=== PATIENT | female | born 1950 | race Caucasian/White ===

== ENCOUNTER 2019-10-14 17:50 | Inpatient (IN) ==
[2019-10-14] MEDS ORDERED: ASPIRIN PO ONE (17:54)
[2019-10-14 18:41] LABS: ALLEN TEST YES; BE 7.1 mmoll (-3.0-3.0); BLOOD TYPE ARTERIAL; HCO3-(ACT) 30.3 mmoll (20.0-26.0); METHB 1.2 % (0.0-1.5); O2(CT) 14.6 mL/dL (15.0-23.0); O2HB 90.4 % (95.0-99.0); PCO2(98.6) 46 mmHg (35-45); PO2(98.6) 60 mmHg (60-100); SAMPLE BLOOD; SAO2 93.9 % (95.0-100.0); THB 11.5 g/dL (11.5-17.4); pH(98.6) 7.45 (7.35-7.45)
[2019-10-14 18:42] LABS: MODALITY ROOM AIR
--- NOTE | 2019-10-14 18:52 | PROVIDER DOCUMENTATION ---
HPI-General Adult - General Chief Complaint: Chest Pain Stated Complaint: Chest pain, dyspnea Time Seen by Provider: 10/14/19 17:51 Source: patient, family Allergies/Adverse Reactions: Patient Allergies Allergy/AdvReac Type Severity Reaction Status Date / Time No Known Allergies Allergy Verified 10/24/17 15:08 Home Medications: Home Medication List Medication Instructions Recorded Confirmed Last Taken Type ATORVAstatin [Lipitor] 40 mg PO QHS 10/24/17 10/14/19 Unknown History Aspirin 81 mg PO DAILY 10/24/17 10/14/19 Unknown History Ergocalciferol (Vitamin D2) 50,000 unit PO DIRECTED 10/24/17 10/14/19 Unknown History [Drisdol] Fenofibrate 160 mg PO DAILY 10/24/17 10/14/19 Unknown History Nitroglycerin [Nitrostat] 0.4 mg SL DIRECTED PRN 10/25/17 10/14/19 Unknown History Diltiazem C.d. [Cardizem Cd] 240 mg PO DAILY #30 cap 10/29/17 10/14/19 Unknown Rx Metoprolol [Lopressor] 25 mg PO Q12HR #60 tab 10/29/17 10/14/19 Unknown Rx Pantoprazole [Protonix] 40 mg PO DAILY@0700 #30 tab 10/29/17 10/14/19 Unknown Rx Apixaban [Eliquis] 1 tab PO BID 10/14/19 10/14/19 Unknown History Paroxetine [Paxil] 10 mg PO DAILY 10/14/19 10/14/19 Unknown History - History of Present Illness -Gen Adult Nature of Presenting Problems: [id number] presents with sudden onset of right side chest pain and dyspnea that started about an hour prior to arrival. Daughter states, patient was just recently discharged from [facility] on 10/10/19 and had a PE on her Aorta. Patient also has a history of DVT and has left leg edema. Patient is in AFib/Flutter and h/o CHF. Daughter states that she also developed bedsore to buttocks while at [facility]. Patient does have accessory muscle usage and not eable left leg edema. Location of Pain/Injury: reports: chest (right chest) Pain Radiation: reports: no radiation Quality of Pain: reports: sharp Severity: reports: moderate Onset/Duration: reports: 1 hour ago Timing: reports: still present Associated Symptoms: reports: shortness of breath Similar Symptoms Previously?: Yes (Recently in [facility] on 10/10/19 diagnosed with PE on Aorta) Recently seen or treated by another doctor?: Yes (In [facility] on 10/10/19) Review of Systems - Adult - REVIEW OF SYSTEMS - ADULT Constitutional: reports: no symptoms reported Eyes: reports: no symptoms reported Ears, Nose, Mouth & Throat: reports: no symptoms reported Cardiovascular: reports: chest pain, edema (left leg), irregular heart rate Respiratory: reports: shortness of breath Gastrointestinal: reports: diarrhea Genitourinary: reports: incontinence Musculoskeletal: reports: muscle weakness Integumentary: reports: skin sores/ulcer (bed sore to left buttocks and right elbow) Neurological: reports: no symptoms reported Psychiatric: reports: no symptoms reported Endocrine: reports: no symptoms reported Hematologic/Lymphatic: reports: no symptoms reported Allergic/Immunologic: reports: no symptoms reported All Other Systems: Reviewed and Negative Past History - Adult - PAST MEDICAL HISTORY-ADULT Review of Records: reports: Old Records Reviewed, Nursing Assessment Review, Medications Reviewed, Social history reviewed & non-contributory. Major Childhood Illnesses: reports: denies history Cardiovascular: reports: A-Fib, arrhythmia, blood clots, CHF, HTN, hyperlipidemia Respiratory: reports: denies history Gastrointestinal: reports: denies history Obstetrical/Gynecological: reports: denies history Genitourinary: reports: denies history Musculoskeletal: reports: denies history Neurological: reports: CVA Psychiatric: reports: depression Endocrine/Immune: reports: denies history Other Conditions: reports: denies history - PRIOR SURGERIES/PROCEDURES Surgical/Procedure History: reports: cardiac stent (x 2) - IMMUNIZATION STATUS Childhood Immunizations: See Nurse Assessment Flu Vaccine: See Nurse Assessment - FAMILY HISTORY Family History: reviewed, not pertinent - SOCIAL HISTORY Smoking: less than 1 pack/day Provider spent 3-5 mins advising pt. on dangers of tobacco.: Discussed manners to quit use, and f/u contacts for add'l counseling. Substance Use: none presently/history of abuse Alcohol Use Frequency: never Living Situation: family Physical Exam-General - PHYSICAL EXAM-ADULT Initial Vital Signs Reviewed: Yes - CONSTITUTIONAL General Appearance: alert, mild distress - EYES Eyes: PERRL/EOMI, pink conjunctivae - HEAD, EARS, NOSE, MOUTH & THROAT HENMT: normocephalic/atraumatic, moist mucous membranes - NECK Neck: non-tender, full range of motion, supple, normal inspection - RESPIRATORY Respiratory: chest non-tender, respiratory distress (mild respiratory distress), accessory muscle use, rales - CARDIOVASCULAR Cardiovascular: normal peripheral pulses, no gallop, no JVD, no murmur, irregularly irregular - GASTROINTESTINAL (ABDOMEN) Abdominal Exam: normal bowel sounds, non tender, soft - LYMPHATIC Lymphatic: no adenopathy - MUSCULOSKELETAL Extremity: non-tender, erythema (bruise to dorsal aspect of left foot), pedal edema, swelling (left leg) Peripheral Pulses: radial (R): 2+, radial (L): 2+, dorsalis-pedis (R): 2+, dorsalis-pedis (L): 2+ - SKIN Integumentary: warm/dry, petechiae (to bilateral lower extremities), swelling (left leg), other - NEUROLOGIC Neurologic: motor weakness - PSYCHIATRIC Psych/Mental Status: normal mood/affect, normal thought process, oriented x 3 Progress - PLAN OF CARE/RESULTS Progress/Plan/Lab Results: Vital Signs - 8 hr 10/14/19 17:50 10/14/19 17:53 Temperature 98.6 F Pulse Rate 64 Respiratory Rate 21 Blood Pressure 162/90 O2 Sat by Pulse Oximetry 95 Laboratory Results - last 24 hr 10/14/19 18:32 Specimen Type ARTERIAL Sample Site R RADIAL pH 7.45 pCO2 46 H pO2 60 HCO3 30.3 H Base Excess 7.1 H Oxyhemoglobin 90.4 L ABG O2 Sat (Calculated) 14.6 L ABG O2 Saturation 93.9 L ABG Carboxyhemoglobin 2.60 H ABG Methemoglobin 1.2 Coleman Test YES A-a O2 Difference 32.0 Total Hemoglobin 11.5 Lactate 0.60 Blood Gas Modality ROOM AIR FiO2 % 21.0 Orders Category Date Time Status Cardiac Monitoring DIRECTED Care 10/14/19 17:54 Active Oxygen Therapy- ED Nursing DIRECTED Care 10/14/19 17:54 Active Saline Loc NOW Care 10/14/19 17:54 Active CHEST-2 VIEWS [RAD] Stat Exams 10/14/19 17:54 Taken ABG [RESP] Routine Lab 10/14/19 18:32 Completed CBC WITH ELECTRONIC DIFF [HEME] Stat Lab 10/14/19 18:40 Ordered CK PROFILE [SP CHEM] Stat Lab 10/14/19 18:40 Ordered COMPREHENSIVE METABOLIC PANEL [CHEM] Stat Lab 10/14/19 18:40 Ordered LACTATE, PLASMA [CHEM] Q3H Lab 10/14/19 18:40 Ordered LACTATE, PLASMA [CHEM] Q3H Lab 10/14/19 21:30 Uncollected LACTATE, PLASMA [CHEM] Q3H Lab 10/15/19 00:30 Uncollected PRO B-NATRIURETIC PEPTIDE Stat Lab 10/14/19 18:40 Ordered PROTIME WITH INR [COAG] Stat Lab 10/14/19 18:40 Ordered PTT [COAG] Stat Lab 10/14/19 18:40 Ordered TROPONIN T HIGH SENSITIVITY Stat Lab 10/14/19 18:40 Ordered Aspirin Med 10/14/19 17:54 Discontinued 325 mg PO NOW ONE CP/SOB/Palp >45 yrs of Age Stat Oth 10/14/19 17:54 Ordered EKG [EKG] Stat Ther 10/14/19 17:54 Ordered Venous U/S Left Leg Stat Ther 10/14/19 18:25 Ordered Result Diagrams: 10/14/19 18:40 10/14/19 18:40 - REASSESSMENT Reassessment #1 Time Reassessed: 18:30 Status: improving (breathing improved pending labs and ct) Reassessment #2 Time Reassessed: 20:58 Status: other (Patient to be admitted) - XRAY 1 XRAY Study: Chest (FINDINGS: There is some mild infiltrate or atelectasis at the left lower lobe with some loss of the left hemidiaphragm. Heart size is normal. No pneumothorax or significant pleural effusion. IMPRESSION: Left lower lobe infiltrate suggesting pneumonia or viral infection.) - CONSULTS/PCP/HOSPITALIST Notification #1 *Consult/PCP/Hospitalist*: Dr. Mcdowell Time Discussed: 20:58 Reason/Comments: Pneumonia, CHF Consult Disposition: Admit Departure - Departure Date of Disposition Decision: 10/14/19 Time of Disposition Decision: 20:59 DIAGNOSIS: Pneumonia Qualifiers: Pneumonia type: due to unspecified organism Laterality: left Lung location: lower lobe of lung Qualified Code(s): J18.1 - Lobar pneumonia, unspecified organism CHF exacerbation Qualifiers: Heart failure type: unspecified Qualified Code(s): I50.9 - Heart failure, unspecified Disposition: ADMITTED INPATIENT 09 Certified Medical Emergency: Emergent Condition: Critical Referrals and Follow-Ups: Wale Pike [Primary Care Provider] - - Critical Care Note This patient required my direct & personal management of CC.: Yes Total Time (mins): 40 Critical Care Statement: This patient required my direct personal management to treat or rule out processes, the absence of which, could potentiallly result in sudden, clinically significant life or limb threatening deterioration. Attestation - Physician/ BRISA Attestation Patient care was provided by Advanced Practice Provider:: Yes Advanced Practice Provider:: Jillian López Advanced Practice Provider documentation review:: The Mid-level provider documentation, treatment plan and medical decision making was reviewed by the physician who agrees with all treatment and medical decision making by the MLP. The physician spent face to face time with patient:: No Advanced Practice Provider documentation review:: Supervising physician onsite and consulted in the evaluation and care of this patient. The physician did not have a face to face encounter with the patient.
[2019-10-14 19:00] LABS: BASO# 0.02 X1000 (0.0-0.2); BASO% 0.2 % (0.0-0.8); EOS# 0.24 X1000 (0.0-0.7); EOS% 2.3 % (0.0-10.0); HEMATOCRIT 36.1 % (37.0-47.0); HEMOGLOBIN 11.5 g/dL (12.0-16.0); IMM GRAN# 0.03 X1000 (0.0-0.04); IMM GRAN% 0.3 % (0.0-0.5); LYMPH% 8.5 % (20.5-51.1); MCHC 31.9 g/dL (33-37); MCV 90.9 FL (81-99); MONO# 0.87 X1000 (0.11-0.59); MONO% 8.2 % (1.7-9.3); MPV 11.6 FL (7.4-10.4); NEUT# 8.56 X1000 (1.4-6.5); NEUT% 80.5 % (42.2-75.2); PLT 259 X1000 (130-400); RBC 3.97 XMIL (4.2-5.4); WBC 10.62 X1000 (4.8-10.8)
[2019-10-14 19:05] LABS: INR 1.48; PROTIME 18.2 Seconds (11.0-16.0); PTT 35.2 Seconds (22.3-41.8)
[2019-10-14 19:26] LABS: AGAP 10; ALB/GLOB RATIO 1.3; ALBUMIN 2.8 g/dL (3.5-5.0); ALKALINE PHOSPHATASE 46 U/L (32-104); BUN 19 mg/dL (8-22); CALCIUM 8.2 mg/dL (8.8-10.2); CHLORIDE 99 mmol/L (98-107); CK PROFILE 25 U/L (24-173); COSMO 278; CREATININE 0.8 mg/dL (0.5-0.9); ESTIMATED GFR > 60; GLUCOSE 103 mg/dL (70-104); GOT 14 U/L (10-30); GPT 5 U/L (10-36); POTASSIUM 3.8 mmol/L (3.5-5.1); SODIUM 138 mmol/L (136-145); TCO2 29 mmol/L (25-35); TOTAL BILIRUBIN 0.58 mg/dL (0.20-1.00); TOTAL PROTEIN 4.9 g/dL (6.3-8.3)
--- NOTE | 2019-10-14 19:30 | Diag Imaging Result Doc PS360 ---
CHEST-2 VIEWS - 10/14/2019 INDICATION: CP COMPARISON: 10/24/2017 FINDINGS: There is some mild infiltrate or atelectasis at the left lower lobe with some loss of the left hemidiaphragm. Heart size is normal. No pneumothorax or significant pleural effusion. IMPRESSION: Left lower lobe infiltrate suggesting pneumonia or viral infection. Electronically signed by Des Cortez 10/14/2019 7:28 PM
[2019-10-14] MEDS ORDERED: LASIX IV ONE (19:42)
[2019-10-14] MEDS ORDERED: MAXIPIME 1 GM in NS 50 ML IV SCH (20:00)
--- NOTE | 2019-10-14 20:56 | Diag Imaging Result Doc PS360 ---
CT ABD/PELVIS/PULM ARTERIES - 10/14/2019 INDICATION: cp,dyspnea,hxaaa TECHNIQUE: Axial CT images were obtained after administering intravenous contrast. Coronal MIP images were generated. COMPARISON: 10/28/2017 FINDINGS: CHEST: There is extremely extensive atherosclerotic plaque buildup in the descending thoracic aorta extending into the abdominal aorta. There is no pulmonary embolism. There are stents in the proximal subclavian arteries bilaterally. Heart size is borderline enlarged. No pericardial effusion. There are small bilateral pleural effusions. There is some aspirated frothy fluid in the right mainstem bronchus. There is mild bronchitis. There is a small nodular infiltrate in the left lower lobe measuring about 14 mm. There is also some plate like atelectasis in both lung bases. There are moderate degenerative changes of the spine. No acute or suspicious bony lesion. Abdomen pelvis: There is complete opacification of the abdominal aorta and both common iliac arteries. This is at the level below the renal arteries. There is aneurysmal dilation of the abdominal aorta measuring up to 3.8 cm. There is reconstitution of the internal and external iliac artery systems via collaterals. There is severe distention of the urinary bladder. There is moderate bilateral hydronephrosis. There are some hypoenhancing areas of the spleen compatible small splenic infarctions. The adrenal glands are bulky. The pancreas and gallbladder are normal. No bowel obstruction or inflammation. Normal appendix. Uterus and rectum are normal. There are moderate degenerative changes of the spine. No acute or suspicious bony lesion. IMPRESSION: 1. Small bilateral pleural effusions. Bronchitis. Frothy aspirated fluid in the right mainstem bronchus. 2. Suspicious pulmonary nodule in the left lower lobe. Outpatient follow-up recommended. 3. Severe atherosclerotic sclerotic plaque buildup of the descending aorta and abdominal aorta. 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 There is reconstitution of the internal and external iliac arteries via collaterals. 4. Severely overdistended urinary bladder with bilateral hydronephrosis. Recommend placing a Rangel catheter. This exam was performed using automated exposure control, adjustment of mA or kV according to patient size, and/or use of iterative reconstruction technique Electronically signed by Des Cortez 10/14/2019 8:54 PM
--- NOTE | 2019-10-14 21:31 | EKG Report ---
Test Performed on : 10/14/2019 5:57:45 PM Test Reason : cp Blood Pressure : / mmHG Vent. Rate : 082 BPM Atrial Rate : 208 BPM P-R Int : 000 ms QRS Dur : 086 ms QT Int : 360 ms P-R-T Axes : 000 -76 111 degrees QTc Int : 420 ms Atrial fibrillation. Left axis deviation Inferior infarct (cited on or before 24-OCT-2017) Anterior infarct (cited on or before 24-OCT-2017) Abnormal ECG When compared with ECG of 29-OCT-2017 05:49, Questionable change in initial forces of Septal leads Nonspecific T wave abnormality, improved in Anterolateral leads Unconfirmed Result
--- NOTE | 2019-10-14 22:15 | HISTORY AND PHYSICAL ---
PRIMARY CARE PHYSICIAN: Wale Bowling MD REASON FOR ADMISSION: One week of dry cough and pleuritic chest pain, increased shortness of breath. HISTORY OF PRESENT ILLNESS: Mr. Essence Maurer is a 68-year-old woman with past medical history of atrial fibrillation, prior CVA, hypertension, coronary artery disease status post stent, hyperlipidemia who was recently admitted to [facility] in [place] for what appeared to be COPD exacerbation. During the course of her stay they noticed that she had a thrombus in the aorta and she was transferred to [facility] in [place]. She spent another week there and was discharged on Eliquis for this. Over the last 2 weeks, the daughter tells me that her mother has been unable to get out of bed. She also had her left lower extremity swollen, but not painful and they were concerned, and were told to come to the hospital at the behest of the home health nurse. Her venous Doppler studies have been negative thus far. She denies any fever, chills. She has been coughing for about 1 week, nonproductive. She admits to having some mild orthopnea, but no PND. She also complains of right pleuritic chest pain, which has been there for a week and intermittent with no specific aggravating or relieving factors other than coughing. No palpitations or lightheadedness. REVIEW OF SYSTEMS: Urinary incontinence is noted. No GI complaints. No focal neurological complaints. She also has a nonhealing ulcer on the bridge of her nose which she frequently picks at. ALLERGIES: No allergies. HOME MEDICATIONS: She is on Eliquis 5 mg b.i.d., Cardizem 240 mg daily, Fenofibrate 160 mg daily, vitamin D 50,000 units daily, aspirin 81 mg daily, metoprolol 25 mg q.12, Protonix 40 mg daily, atorvastatin 40 mg daily. SURGICAL HISTORY: Stent placement. FAMILY HISTORY: Notable for heart disease, CHF, type 2 diabetes. SOCIAL HISTORY: She stopped smoking 2 weeks ago and plans to quit. No alcohol or drug use. Currently lives at home and lives with her daughter. LABORATORY WORK: White count 10,000, hemoglobin and hematocrit 11 and 36, platelet count 259,000, and 80% neutrophils. BUN is 19, creatinine 0.9. ProBNP 11,000, troponin 41. Lactate 0.9. PT 18, INR 1.48, PTT 35. Blood gas pH 7.45, pCO2 46, PO2 60 and this is on room air. Chest film showed left lower lobe infiltrate. CT abdomen and pelvis: Small, bilateral pleural effusions. 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 Severely, over distended bladder with bilateral hydronephrosis. EXAMINATION: General: Middle-aged white female who is alert and oriented to person, place, and time with normal mood and affect. Head: Is normocephalic, atraumatic. She appears older than stated age. Eyes: JESUS ALBERTO. EOMI. She is anicteric but pale. ENT Exam: Grossly normal. Neck: Supple. There is noticeable JVD and mild hepatojugular reflux. No bruit, thyromegaly. Chest: Bibasilar crepitations, decreased in both lung hall. Cardiovascular: First and second sounds heard. No gallops, murmurs, rubs. Rhythm is irregular. Abdomen: Full, soft, nontender. No organomegaly. Bowel sounds are diminished. Rectal: Deferred at this time. Extremities: 1+ pitting edema with diminished distal pulse volumes in the lower extremity compared to the upper extremity. No clubbing or peripheral cyanosis. Neurological: No gross focal deficits. No tremors. Skin: Patient has a chronic ulcer on the bridge of her nose which is crusted. She has numerous hemangioma-like lesions on the shins of the feet. Band-Aids on both of her feet for chronic ulcers according to her daughter. I did not remove these. Musculoskeletal: The patient has a 3/5 power both lower extremities. No evidence of sarcopenia. ASSESSMENT: At this time is 1. Left lower lobe pneumonia probably aspiration pneumonia. 2. Mild congestive heart failure, type unknown. 3. Chronic obstructive pulmonary disease. 4. Tobacco use. 5. Hyperlipidemia. 6. Hypertensive heart disease. 7. Atrial fibrillation. 8. Peripheral arterial disease with aortic thrombosis. 9. Severe deconditioning with lower extremity weakness. Consider statin/fibrate-induced versus critical illness-induced myopathy. PLAN: The patient will be started on antibiotic coverage for primarily aspiration pneumonia for nosocomial pathogens. Breathing treatment to be scheduled as needed. Resume patient's rate limiting drugs i.e. metoprolol and Cardizem. Continue with Eliquis and aspirin. The patient will definitely benefit from physical therapy and usp placement due to the fact she is profoundly weak. I have ordered a total CPK to see if she does have evidence of statin-induced myopathy and/or fever-induced myopathy. Risk of statin induced myopthy is increased with use of fibrates,statins and Cardizem.. I have discontinued fibrate, but will continue statins for now and if need be, maybe would add or decreased the dose to stop it if this is the case. We will start patient on modest doses of diuretics to address fluid overload. Her last echo showed that she had a 56% ejection fraction and we will repeat another echo. Do serial cardiac enzymes. Or, alternatively, we will get records from [facility], so we do not have to repeat studies i.e. echo tomorrow. I will defer to day team regarding this. cc: MD Wale Gray MD MTDD
[2019-10-14] MEDS ORDERED: NITROGLYCERIN SL PRN (22:36)
[2019-10-14] MEDS: ELIQUIS PO SCH (23:40)
[2019-10-14] MEDS: DOXYCYCLINE PO SCH (23:40)
[2019-10-14] MEDS: LASIX IV SCH (23:40)
[2019-10-14] MEDS: ZOSYN 3.375 GM in NS 50 ML IV SCH (23:41)
[2019-10-15 00:47] LABS: URINE SOURCE CATH
[2019-10-15 01:07] LABS: BILIRUBIN URINE NEGATIVE (NEGATIVE); BLOOD URINE LARGE (NEGATIVE); COLOR ORANGE; GLUCOSE URINE NEGATIVE (NEGATIVE); KETONE URINE NEGATIVE (NEGATIVE); LEUKOCYTES URINE LARGE (NEGATIVE); NITRITE URINE POSITIVE (NEGATIVE); PH URINE 6.5; PROTEIN URINE 50 mg/dL (NEGATIVE); SP GRAVITY URINE 1.036; TURBIDITY URINE TURBID (CLEAR); UR EPITHELIAL CELLS <10 /HPF (<10); URINE BACTERIA 4+ /HPF; URINE RBC TNTC /HPF (<10); URINE WBC TNTC /HPF (<10); UROBILINOGEN URINE NORMAL (NORMAL)
[2019-10-15] MEDS: DUONEB (A & A) INH SCH ×4 (03:29→22:30)
[2019-10-15] MEDS: ZOSYN 3.375 GM in NS 50 ML IV SCH ×3 (06:49→17:01)
[2019-10-15] MEDS: PROTONIX PO SCH (06:49)
[2019-10-15 07:03] LABS: BASO# 0.02 X1000 (0.0-0.2); BASO% 0.2 % (0.0-0.8); EOS# 0.24 X1000 (0.0-0.7); EOS% 2.6 % (0.0-10.0); HEMATOCRIT 36.8 % (37.0-47.0); HEMOGLOBIN 11.6 g/dL (12.0-16.0); LYMPH# 0.76 X1000 (1.2-3.4); LYMPH% 8.4 % (20.5-51.1); MCH 28.9 PG (27-31); MCHC 31.5 g/dL (33-37); MCV 91.5 FL (81-99); MONO# 0.73 X1000 (0.11-0.59); MPV 11.7 FL (7.4-10.4); NEUT# 7.35 X1000 (1.4-6.5); NEUT% 80.8 % (42.2-75.2); PLT 242 X1000 (130-400); RBC 4.02 XMIL (4.2-5.4); RDW 15.8 % (11.5-14.5)
[2019-10-15 07:26] LABS: AGAP 8; BUN 17 mg/dL (8-22); CALCIUM 8.8 mg/dL (8.8-10.2); CHLORIDE 97 mmol/L (98-107); COSMO 276; CREATININE 0.8 mg/dL (0.5-0.9); ESTIMATED GFR > 60; GLUCOSE 85 mg/dL (70-104); POTASSIUM 3.1 mmol/L (3.5-5.1); SODIUM 138 mmol/L (136-145); TCO2 33 mmol/L (25-35)
--- NOTE | 2019-10-15 08:04 | EKG Report ---
Test Performed on : 10/14/2019 10:50:21 PM Test Reason : ekg Blood Pressure : / mmHG Vent. Rate : 083 BPM Atrial Rate : 081 BPM P-R Int : 000 ms QRS Dur : 090 ms QT Int : 366 ms P-R-T Axes : 000 -76 123 degrees QTc Int : 430 ms Atrial fibrillation. Left axis deviation Septal infarct (cited on or before 24-OCT-2017) Abnormal ECG When compared with ECG of 14-OCT-2019 17:57, (Unconfirmed) Questionable change in initial forces of Septal leads Confirmed by Walt Deras MD ([id number]) on 10/16/2019 7:33:17 PM
[2019-10-15] MEDS: DOXYCYCLINE PO SCH (09:01)
[2019-10-15] MEDS: LOPRESSOR PO SCH ×2 (09:01→22:59)
[2019-10-15] MEDS: PAXIL PO SCH (09:01)
[2019-10-15] MEDS: ELIQUIS PO SCH ×2 (09:01→22:59)
[2019-10-15] MEDS: ASPIRIN PO SCH (09:01)
[2019-10-15] MEDS: CARDIZEM CD PO SCH (09:01)
[2019-10-15] MEDS: LASIX IV SCH ×3 (09:02→22:59)
[2019-10-15] MEDS ORDERED: NORCO-5 PO PRN (09:06)
[2019-10-15] MEDS ORDERED: KLOR-CON PO ONE (10:19)
[2019-10-15] MEDS: TEFLARO 600 MG in NS 250 ML IV SCH ×2 (10:53→22:58)
--- NOTE | 2019-10-15 11:00 | PROGRESS NOTE ---
DATE: 10/15/2019 SUBJECTIVE: The patient reports breathing better. Denies any fever or chills. OBJECTIVE: Vital Signs: Temperature 98.4 degrees, heart rate 85, respiratory rate 18, blood pressure 141/91, O2 saturation 98% 2 L nasal cannula. General: This is a chronically ill- looking 68-year-old female lying in bed, in no acute distress. Cardiovascular: S1 and S2 heard. No murmurs, gallops, or rubs. Regular rate and rhythm. Respiratory: Bibasilar crepitation noted in both pulmonary hall. Patient is not using any accessory muscles or having work of breathing. Abdomen: Soft. Nontender to palpation. Bowel sounds present. No organomegaly. Extremities: 1+ pitting edema with diminished distal pulses in both lower extremities in comparing with the upper. No clubbing or cyanosis noted. Neurological: The patient alert and oriented x3. No gross focal deficit. Skin: Patient has a chronic ulcer in the bridge of her nose which is crusted. She has chronic ulcers according to her daughter. LABORATORY DATA: Reviewed. ASSESSMENT AND PLAN: 1. Left lower lobe pneumonia. We will continue with antibiotics, in this case Zosyn and ceftaroline 600 mg IV q.12 hours. We will continue with the same management. 2. Mild congestive heart failure. We will continue with Lasix. 3. COPD. We will continue with breathing treatments every 4 hours scheduled. 4. Tobacco abuse. Patient advised to stop using tobacco. 5. Peripheral artery disease with aortic thrombosis, aware. We have noticed in the CT of the abdomen and pelvis complete occlusion of the abdominal aorta below the renal artery. So, at this point, I am going to order a CT angiogram of the aorta with run off and we will go from there. We will consult Vascular Surgery if needed. cc: Esdras Calvillo MD
--- NOTE | 2019-10-15 16:40 | Diag Imaging Result Doc PS360 ---
EXAM: CT ANGIOGRAM AORTA W/RUNOFF INDICATION: Occlusion of infrarenal aorta TECHNIQUE: This exam was performed using automated exposure control, adjustment of mA or kV according to patient size, and/or use of iterative reconstruction technique. Thin section axial images and 3-D MIPS were obtained. COMPARISON: CT of the chest, abdomen, and pelvis dated 10/14/2019 FINDINGS: As was seen on the recent conventional CT, there is severe aortoiliac atherosclerotic calcification and there is complete occlusion of the infrarenal aorta. The common iliac arteries and the right external iliac artery are also completely occluded. There is a 4.2 cm infrarenal abdominal aortic aneurysm that is completely occluded with clot. 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 There is extensive atherosclerotic calcification at the celiac trunk but it appears to remain patent. There is patchy atherosclerotic calcification throughout the SMA with intermittent mild to moderate narrowing. It is stable. There is also atherosclerotic disease at the origins of the renal arteries bilaterally with at least moderate stenosis. There is reconstitution of flow in the external iliac artery on the left but it remains heavily calcified. Otherwise, the abdomen and pelvis are essentially stable as compared to the very recent prior study. Right: Although the right external iliac artery is occluded, there is reconstitution of blood flow at the common femoral artery. There is extensive common femoral artery atherosclerotic calcification with intermittent moderate luminal narrowing. There is significant patchy atherosclerotic calcification throughout the superficial femoral artery. There is intermittent moderate stenosis. There remains patent. There is moderate atherosclerotic calcification involving the popliteal artery with moderate narrowing. It remains patent. The anterior tibial artery is patent throughout its course and provides runoff to the foot. The posterior tibial artery and peroneal artery remains patent throughout their courses and provides runoff to the foot. Left: There is extensive atherosclerotic calcification involving the common femoral artery with intermittent moderate stenosis. There is extensive atherosclerotic calcification involving the superficial femoral artery. It becomes completely occluded at the mid thigh but flow is reconstituted more distally. There is still intermittent significant stenosis involving the distal superficial femoral artery. There is also atherosclerotic calcification involving the popliteal artery with intermittent moderate stenosis. The anterior tibial artery remains patent throughout its course and provides runoff to the foot. The posterior tibial artery and peroneal artery are patent throughout their courses and provides runoff to the foot. IMPRESSION: 1.Extensive aortoiliac atherosclerotic disease with complete occlusion of the infrarenal aorta as detailed above. 2.Significant atherosclerotic disease involving both lower extremities. However, there is still three-vessel runoff to the feet. Electronically signed by Nadeem Robles 10/15/2019 4:38 PM
[2019-10-15] MEDS: SANTYL OINT TOP SCH (17:05)
[2019-10-15] MEDS: LIPITOR PO SCH (22:59)
[2019-10-16] MEDS: ZOSYN 3.375 GM in NS 50 ML IV SCH ×4 (01:10→23:00)
[2019-10-16] MEDS: PROTONIX PO SCH ×2 (05:52→06:22)
[2019-10-16 07:01] LABS: HEMATOCRIT 35.6 % (37.0-47.0); HEMOGLOBIN 11.6 g/dL (12.0-16.0); MCH 30.3 PG (27-31); MCHC 32.6 g/dL (33-37); MPV 12.1 FL (7.4-10.4); RBC 3.83 XMIL (4.2-5.4); RDW 16.5 % (11.5-14.5); WBC 8.22 X1000 (4.8-10.8)
[2019-10-16] MEDS: DUONEB (A & A) INH SCH ×3 (07:57→23:21)
[2019-10-16 08:16] LABS: AGAP 10; ALBUMIN 2.4 g/dL (3.5-5.0); BUN 14 mg/dL (8-22); CHLORIDE 95 mmol/L (98-107); COSMO 276; CREATININE 0.8 mg/dL (0.5-0.9); ESTIMATED GFR > 60; GLUCOSE 92 mg/dL (70-104); PHOSPHORUS 2.8 mg/dL (2.7-4.5); POTASSIUM 3.7 mmol/L (3.5-5.1); SODIUM 138 mmol/L (136-145); TCO2 33 mmol/L (25-35)
--- NOTE | 2019-10-16 08:37 | ECHO REPORT ---
ORDER DATE: 10/15/2019 MEASUREMENTS: Septal thickness 1.3, posterior wall thickness 1.3, left ventricular internal diameter in diastole 3.9, aortic root 3.7, left atrium 5.1. SUMMARY: 1. Technically difficult study due to limited acoustic window quality. Intravenous echocontrast agent Optison was utilized to enhance endocardial definition. 2. Aortic valve was trileaflet and opens normally on 2-dimensional images. The peak gradient across the aortic valve was less than 10 mmHg. Mitral, tricuspid, and pulmonic valves are without evidence of structural abnormality with trace tricuspid regurgitation. The aortic root is normal in size. 3. Normal left ventricular chamber size with mild concentric left ventricular hypertrophy suggested on 2-dimensional images. The estimated left ventricular ejection fraction is approximately 45 to 50 percent. No focal wall motion abnormality can be appreciated. Left atrium is moderately enlarged. The right atrium and right ventricle are normal in size with grossly preserved right ventricular systolic function. 4. No pericardial effusion. 5. Appearance of inferior vena cava suggests normal central venous pressure. 6. Atrial fibrillation during study. CONCLUSIONS: 1. Technically difficult study. 2. No significant valvular abnormality evident. 3. Mild concentric left ventricular hypertrophy with an estimated left ventricular ejection fraction of 45 to 50 percent. 4. Moderate left atrial enlargement. 5. Atrial fibrillation during study. cc: MD Esdras Adame MD MTDD
--- NOTE | 2019-10-16 08:45 | Extremity Venous Study ---
PROCEDURE NAME: Venous U/S Left Leg - 10/14/2019 TAX EXAMINING TECHNICIAN: Ced. REFERRING PHYSICIAN: Rene. INDICATIONS: Edema and pain of the left leg. FINDINGS: The deep and superficial veins of the left lower extremity were visualized along their course. The vessels are compressible with forward flow and no obvious thrombus. There are some focal wall thickenings and chronic changes from prior noted clot. There is also deep reflux noted in the common femoral vein, superficial femoral vein, popliteal, and right common femoral vein. IMPRESSION: No obvious thrombus but chronic changes related to previous thrombosis. cc: Vanna Bahena MD
[2019-10-16] MEDS: CARDIZEM CD PO SCH (10:00)
[2019-10-16] MEDS: ELIQUIS PO SCH ×2 (10:00→23:00)
[2019-10-16] MEDS: LASIX IV SCH ×2 (10:00→23:00)
[2019-10-16] MEDS: LOPRESSOR PO SCH ×2 (10:01→23:00)
[2019-10-16] MEDS: ASPIRIN PO SCH (10:01)
[2019-10-16] MEDS: PAXIL PO SCH (10:01)
[2019-10-16] MEDS: SANTYL OINT TOP SCH (11:01)
--- NOTE | 2019-10-16 11:18 | PROGRESS NOTE ---
DATE: 10/16/2019 SUBJECTIVE: Patient reports breathing fine. Denies any fever or chills. OBJECTIVE: Vital Signs: Temperature 98.1 degrees, heart rate 64, respiratory rate 18, blood pressure 146/84, O2 saturation 99% on room air. General examination: This is a 68-year-old female, lying in bed in no acute distress. Cardiovascular exam: S1 and S2 heard. No murmurs, gallops, or rubs. Regular rate and rhythm. Respiratory exam: Minimal bibasilar crepitation noted. Patient is not using any accessory muscles or having work of breathing. Abdomen: Soft, nontender to palpation. Bowel sounds present. No organomegaly. Extremities: 1+ pitting edema with diminished distal pulses in both lower extremities compared with the upper. No clubbing or cyanosis noted. Neurological exam: Patient is alert and oriented x3. No gross focal deficit noted. Skin: Patient has a chronic ulcer in the bridge of her nose; this is a chronic ulcer according to her daughter. LABORATORY DATA: Reviewed. ASSESSMENT AND PLAN: 1. Acute respiratory failure. 2. Left lower lobe pneumonia. Patient is doing much better. Patient is on Zosyn and Teflaro. Not requiring any oxygen on presentation today. So, we are going to monitor this patient closely for today and, if she is feeling better tomorrow, we will let her go. 3. Mild congestive heart failure. We will continue with Lasix. 4. Chronic obstructive pulmonary disease exacerbation. We will continue with DuoNeb every 4 hours as scheduled. 5. Tobacco abuse. Patient advised again to stop using tobacco. 6. Peripheral artery disease with aortic thrombosis. That condition is aware. 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 7. Disposition: I think if this patient continues to improve, we will let her go tomorrow. cc: Esdras Calvillo MD
[2019-10-16] MEDS: TEFLARO 600 MG in NS 250 ML IV SCH (13:59)
[2019-10-16] MEDS: LIPITOR PO SCH (23:00)
[2019-10-17] MEDS: TEFLARO 600 MG in NS 250 ML IV SCH (02:55)
[2019-10-17] MEDS: PROTONIX PO SCH ×2 (05:47→06:04)
[2019-10-17] MEDS: ZOSYN 3.375 GM in NS 50 ML IV SCH ×2 (05:47→12:32)
[2019-10-17 06:43] LABS: HEMATOCRIT 33.8 % (37.0-47.0); HEMOGLOBIN 11.1 g/dL (12.0-16.0); MCH 30.2 PG (27-31); MCHC 32.8 g/dL (33-37); MCV 91.8 FL (81-99); MPV 11.5 FL (7.4-10.4); RBC 3.68 XMIL (4.2-5.4); RDW 16.1 % (11.5-14.5); WBC 8.7 X1000 (4.8-10.8)
[2019-10-17 07:07] LABS: AGAP 10; ALBUMIN 2.2 g/dL (3.5-5.0); BUN 15 mg/dL (8-22); CALCIUM 8.2 mg/dL (8.8-10.2); CHLORIDE 92 mmol/L (98-107); COSMO 269; CREATININE 0.8 mg/dL (0.5-0.9); ESTIMATED GFR > 60; GLUCOSE 104 mg/dL (70-104); PHOSPHORUS 2.9 mg/dL (2.7-4.5); POTASSIUM 3.2 mmol/L (3.5-5.1); SODIUM 134 mmol/L (136-145); TCO2 32 mmol/L (25-35)
[2019-10-17] MEDS: DUONEB (A & A) INH SCH (07:22)
[2019-10-17 07:50] LABS: URINE SOURCE CATH
[2019-10-17 07:58] LABS: BILIRUBIN URINE NEGATIVE (NEGATIVE); BLOOD URINE SMALL (NEGATIVE); COLOR YELLOW; GLUCOSE URINE NEGATIVE (NEGATIVE); KETONE URINE NEGATIVE (NEGATIVE); LEUKOCYTES URINE MODERATE (NEGATIVE); NITRITE URINE NEGATIVE (NEGATIVE); PROTEIN URINE NEGATIVE (NEGATIVE); SP GRAVITY URINE 1.016; TURBIDITY URINE CLEAR (CLEAR); UROBILINOGEN URINE NORMAL (NORMAL)
[2019-10-17 08:00] LABS: UR EPITHELIAL CELLS <10 /HPF (<10); URINE BACTERIA NEGATIVE /HPF; URINE RBC <10 /HPF (<10); URINE WBC 20-40 /HPF (<10)
[2019-10-17] MEDS ORDERED: KLOR-CON PO ONE (09:07)
[2019-10-17] MEDS: PAXIL PO SCH (10:21)
[2019-10-17] MEDS: ASPIRIN PO SCH (10:21)
[2019-10-17] MEDS: CARDIZEM CD PO SCH (10:21)
[2019-10-17] MEDS: ELIQUIS PO SCH (10:21)
[2019-10-17] MEDS: LOPRESSOR PO SCH (10:22)
[2019-10-17] MEDS: SANTYL OINT TOP SCH (10:23)
[2019-10-17] MEDS: LASIX IV SCH (10:28)
--- NOTE | 2019-10-17 11:53 | DISCHARGE SUMMARY ---
ADMISSION DATE: 10/14/2019 DISCHARGE DATE: 10/17/2019 DISCHARGE DIAGNOSES: 1. Left lower lobe pneumonia. 2. Mild congestive heart failure. 3. Chronic obstructive pulmonary disease not in exacerbation. 4. Tobacco use. 5. Hyperlipidemia. 6. Hypertensive heart disease. 7. Atrial fibrillation rate controlled. 8. Peripheral arterial disease. PROCEDURES: 1. Chest x-ray done on admission showed left lower lobe infiltrates suggesting pneumonia or viral infection. 2. Extremity venous study showed no obvious thrombus, but chronic changes related to previous thrombosis, that was in the left leg. 3. Abdominal and pelvis CT showed small bilateral pleural effusion and bronchitis and aspirated fluid in the right mainstem bronchus. Suspicious pulmonary nodule in the left lower lobe. Outpatient follow-up recommended. 4. 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 There is a reconstitution of the internal and external iliac artery via collaterals. 5. Aorta with runoff CTA showed extensive aortoiliac arteriosclerosis disease with complete occlusion of the infrarenal aorta as detailed above and significant arteriosclerotic disease involving both lower extremities. However, there is still three-vessel runoff to the feet. HOSPITAL COURSE: This is a 68-year-old female with past medical history of atrial fibrillation, prior CVA, hypertension, and coronary artery disease who came to the emergency department because she was feeling short of breath. They feel that she may have a DVT in the left leg. Because of shortness of breath, she had a chest x-ray which basically shows this pneumonia so she was admitted to the hospital started on IV antibiotics. Because of findings on the CT of the abdomen and pelvis, we ended up doing a CTA runoff of the aorta with results as above. Patient was feeling fine and breathing okay. Denies any chest pain or pleuritic chest pain. Not developing any fever. White cell count was normal so we decided to discharge this patient who is going home in stable condition. DISCHARGE PHYSICAL EXAMINATION: Vital Signs: Temperature 98.4 degrees, heart rate 74, respiratory rate 20, blood pressure 139/85, and O2 saturation 100% on 2 L nasal cannula. General: This is a chronically ill-looking, 68-year-old female lying in bed in no acute distress. Cardiovascular: S1, S2 heard. No murmurs, gallops, or rubs. Regular rate and rhythm. Respiratory: Clear bilaterally to auscultation. No work of breathing or using accessory muscles. Minimal rhonchi in both bases. Abdomen: Soft. Nontender to palpation. Bowel sounds present. No organomegaly. Extremities: No clubbing, cyanosis, or edema. Peripheral pulses present in both legs. Neurological: Alert and oriented x3. Moves all 4 extremities. Skin: Patient has chronic ulcer on the bridge of her nose. DISPOSITION: 1. Home to self care. 2. Follow up with his primary care physician in a week. 3. Follow up with Dr. Sosa for pulmonary nodule found on the CT of the abdomen in 4 weeks. MEDICATIONS: We are going to provide cefdinir 300 mg p.o. twice daily for 10 days. cc: Esdras Calvillo MD [facility]
[2019-10-17 15:17] VITALS: BP 116/72
== END 2019-10-17 15:21 | disposition home health service (06) | DRG 178 ==
LOC: SUPCPDRO → ED 17:50 → SUATTDRO 21:30 → 4N 21:30
PROVIDERS: ATTEND Internal Medicine